=== PATIENT | male | born 1970 | race Caucasian/White ===

== ENCOUNTER → 2020-04-14 15:11 | Outpatient (CLI) | payer OTHER, SELFPAY ==
[2020-04-14 17:32] LABS: COVID19 -Nasal RAPID Negative (Negative)
== END ==
PROVIDERS: Visit Provider Physician Assistant
DX: Z11.59 Encounter for screening for other viral diseases (principal)
CPT/HCPCS: 87635

== ENCOUNTER → 2021-02-13 12:19 | Outpatient (CLI) | payer OTHER, SELFPAY ==
[2021-02-13 14:27] LABS: COVID19 -Nasal RAPID POSITIVE (Negative)
== END ==
PROVIDERS: Visit Provider Nurse Practitioner
DX: U07.1 COVID-19 (principal)
CPT/HCPCS: 87635

== ENCOUNTER 2022-07-29 16:24 | Emergency (ER) | payer OTHER, SELFPAY ==
[2022-07-29 16:40] VITALS: PULSE 62; RESP 18; TEMP 36.6; O2SAT 100; BMI 23.7
--- NOTE | 2022-07-29 16:52 | DI.RAD.S_ITS ---
PROCEDURE: XR CHEST 1V INDICATIONS: chest pain TECHNIQUE: One view of the chest was acquired. COMPARISON: None. FINDINGS: Surgical changes and devices: None. Lungs and pleura: Lungs are clear. No pleural effusions or pneumothorax. Mediastinum: Mediastinal contours appear normal. Heart size is normal. Bones and chest wall: No suspicious bony lesions. Overlying soft tissues appear unremarkable. IMPRESSION: No acute radiographic abnormality. Dictated by: Ap Agarwal M.D. on 07/29/2022 at 18:14 Approved by: Ap Agarwal M.D. on 07/29/2022 at 18:14
[2022-07-29 17:24] LABS: Add Manual Diff / Slide Review NO; Basophils Absolute Auto 0 /uL (0-100); Basophils Percent Auto 0.7 % (0-2); Eosinophils Absolute Auto 300 /uL (0-450); Eosinophils Percent Auto 4.7 % (2-4); Hemoglobin 14.9 g/dL (13.5-17.5); Lymphocytes Absolute Auto 2000 /uL (1100-4500); Lymphocytes Percent Auto 36.9 % (25-40); Mean Corpuscular HGB Conc 33.1 % (30-36); Mean Corpuscular Hemoglobin 30.4 PG (26-34); Mean Corpuscular Volume 91.8 fL (80-100); Monocytes Absolute Auto 600 /uL (0-900); Monocytes Percent Auto 10.2 % (3-14); Neutrophils Absolute Auto 2600 /uL (1500-7000); Neutrophils Percent Auto 47.5 % (50-75); Platelet Count 179 X10^3/uL (150-400); Red Cell Distribution Width 13.5 % (11.6-14.8); White Blood Cell Count 5.4 X10^3/uL (4.5-11.0)
[2022-07-29 17:27] LABS: Prothrombin Time 11.7 SECONDS (10.1-12.7)
[2022-07-29 17:30] LABS: PTT Partial Thromboplastin Tim 30 SECONDS (26-36)
[2022-07-29 17:38] LABS: Alanine Aminotransferase 22 IU/L (<50); Albumin 4.4 g/dL (3.5-5.0); Albumin Globulin Ratio 1.3 (1.0-2.8); Alkaline Phosphatase 61 U/L (38-126); Aspartate Aminotransferase 26 IU/L (17-59); BUN Creatinine Ratio 16.7 (6-22); Bilirubin Total 0.5 mg/dL (0.2-1.3); Blood Urea Nitrogen 18 mg/dL (9-20); Calcium 8.6 mg/dL (8.4-10.2); Carbon Dioxide 28 mmol/L (22-32); Chloride 100 mmol/L (98-107); Creatine Kinase 73 U/L (55-170); Estimated Glomerular Filt Rate > 60 mL/min (>60); Globulin 3.3 g/dL (1.7-4.1); Glucose 96 mg/dL (70-100); HEMOLYSIS < 15 (0-50); Lipase 106 U/L (23-300); Magnesium 1.9 mg/dL (1.6-2.3); Potassium 3.6 mmol/L (3.4-5.1); Sodium 138 mmol/L (137-145); Total Protein 7.7 g/dL (6.3-8.2)
[2022-07-29 17:49] LABS: Troponin I < 0.012 ng/mL (0.01-0.034)
--- NOTE | 2022-07-29 19:06 | ED.ARRPALP ---
HPI - Arrhythmia/Palpitations General Chief Complaint: Arrhythmia/Palpitations Stated Complaint: sent by [facility] - abnormal heart sounds Time Seen by Provider: 07/29/22 18:44 Source: patient Mode of arrival: Ambulatory Limitations: no limitations History of Present Illness HPI narrative: Patient is a 51-year-old otherwise healthy male who was [facility] the [facility] an abnormal heart rhythm. Patient states that he went to the clinic in order to get a routine evaluation for a job at work and during this evaluation he had an EKG performed and an evaluation and was found to potentially have atrial fibrillation. Patient has never been diagnosed with this in the past. He states that sometimes he occasionally feels like his heart is beating abnormally but it is not all the time. He is currently asymptomatic. He states that occasionally when he stands up he gets lightheaded but that resolves very quickly that has not happened recently. He is had no decrease in exercise tolerance. He denies chest pain or shortness of breath or headache. No nausea and vomiting. No lower extremity swelling. Related Data Home Medications Medication Instructions Recorded Confirmed CA PANTOTHENATE/FOLIC ACID/VIT 1 tab PO QDAY #0 tabs 02/27/13 (MULTIVITAMIN) Previous Rx's Medication Instructions Recorded rivaroxaban 20 mg tablet (Xarelto) 20 mg PO QPM #30 tabs 07/29/22 Allergies Allergy/AdvReac Type Severity Reaction Status Date / Time No Known Drug Allergies Allergy Verified 07/29/22 16:42 Review of Systems Review of Systems ROS Unobtainable: All systems reviewed & are unremarkable except as noted in HPI and below Patient History Social History Smoking Status: Unknown if ever smoked Smoking Status: Unknown if ever smoked Exam Initial Vital Signs Initial Vital Signs: Vital Signs Temperature 98 F 07/29/22 16:40 Pulse Rate 62 07/29/22 16:40 Respiratory Rate 18 07/29/22 16:40 Pulse Oximetry 100 07/29/22 16:40 Oxygen Delivery Method 07/29/22 16:40 Const General: cooperative, comfortable and No ill appearing HENMT Head: normal to inspection and normocephalic Resp Effort & Inspection: normal respiratory effort Auscultation: clear to auscultation bilaterally Cardio Rate: bradycardic Rhythm: abnormal rhythm GI Inspection: normal to inspection Skin General: no rashes or lesions noted Neuro General: patient alert, patient awake, patient oriented x3 and moves all extremities Extrem General: normal to inspection and capillary refill normal Psych Appearance: grossly normal and well kempt Course Orders Ordered: ED Orders 07/29/22 16:52 XR chest 1V Stat EKG-12 Lead Stat 07/29/22 16:57 Complete Blood Count AUTO DIFF Stat Comprehensive Metabolic Panel Stat Lipase Stat Magnesium Stat Partial Thromboplastin Time Stat Prothrombin Time INR Stat Troponin & CK Cardiac Panel Stat Discontinued Medications Aspirin (Aspirin 81 Mg Chew Tab) 324 mg PO NOW ONE Stop: 07/29/22 16:53 Last Admin: 07/29/22 18:43 Dose: Not Given Documented By: AIDAN Vital Signs Vital signs: Vital Signs - 8 hr 07/29/22 16:40 Temperature 98 F Pulse Rate 62 Respiratory Rate 18 Pulse Oximetry 100 Oxygen Delivery Method Room Air MDM - Arrhythmia/Palpitations Lab Data Attestation: I reviewed the patient's lab results. 07/29/22 16:57 07/29/22 16:57 Labs: Lab Results 07/29/22 07/29/22 07/29/22 Range/Units 16:57 16:57 16:57 WBC 5.4 (4.5-11.0) X10^3/uL RBC 4.90 (4.5-5.9) X10^6/uL Hgb 14.9 (13.5-17.5) g/dL Hct 45.0 (41-53) % MCV 91.8 (80-100) fL MCH 30.4 (26-34) PG MCHC 33.1 (30-36) % RDW 13.5 (11.6-14.8) % Plt Count 179 (150-400) X10^3/uL Neut % (Auto) 47.5 L (50-75) % Lymph % (Auto) 36.9 (25-40) % [place] % (Auto) 10.2 (3-14) % Eos % (Auto) 4.7 H (2-4) % Baso % (Auto) 0.7 (0-2) % Neut # (Auto) 2600 (0326-6040) /uL Lymph # (Auto) 2000 (9874-7098) /uL [place] # (Auto) 600 (0-900) /uL Eos # (Auto) 300 (0-450) /uL Baso # (Auto) 0 (0-100) /uL PT 11.7 (10.1-12.7) SECONDS INR 1.0 (0.9-1.3) APTT 30 (26-36) SECONDS Sodium 138 (137-145) mmol/L Potassium 3.6 (3.4-5.1) mmol/L Chloride 100 (98-107) mmol/L Carbon Dioxide 28 (22-32) mmol/L BUN 18 (9-20) mg/dL Creatinine 1.08 (0.66-1.25) mg/dL Estimated GFR > 60 (>60) mL/min BUN/Creatinine Ratio 16.7 (6-22) Glucose 96 (70-100) mg/dL Calcium 8.6 (8.4-10.2) mg/dL Magnesium 1.9 (1.6-2.3) mg/dL Total Bilirubin 0.5 (0.2-1.3) mg/dL AST 26 (17-59) IU/L ALT 22 (<50) IU/L Alkaline Phosphatase 61 (38-126) U/L Total Creatine Kinase 73 (55-170) U/L CK-MB (CK-2) TNP CK-MB (CK-2) Rel Index TNP Troponin I < 0.012 (0.01-0.034) ng/mL Total Protein 7.7 (6.3-8.2) g/dL Albumin 4.4 (3.5-5.0) g/dL Globulin 3.3 (1.7-4.1) g/dL Albumin/Globulin Ratio 1.3 (1.0-2.8) Lipase 106 (23-300) U/L Imaging Data Chest x-ray: Radiologist's Impresson: PROCEDURE:? XR CHEST 1V ? INDICATIONS:? chest pain ? TECHNIQUE:? One view of the chest was acquired.? ? COMPARISON:? None. ? FINDINGS:? ? Surgical changes and devices:? None.? ? Lungs and pleura:? Lungs are clear.? No pleural effusions or pneumothorax.? ? Mediastinum:? Mediastinal contours appear normal.? Heart size is normal.? ? Bones and chest wall:? No suspicious bony lesions.? Overlying soft tissues appear unremarkable.? ? IMPRESSION:? No acute radiographic abnormality.? ECG Data Attestation: I personally reviewed and interpreted this ECG as follows: Prior ECG tracings: available for review Interpretation: EKG performed at outside clinic shows atrial fibrillation with a rate in the 50s EKG performed here Atrial fibrillation Ventricular rate of 57 Normal axis Normal QRS Normal QTC No ST T wave changes MDM Narrative Medical decision making narrative: Patient is in rate controlled atrial fibrillation. Patient not a candidate for cardioversion as we do not know when he started to have the abnormal heart rhythm. Patient is asymptomatic currently. Electrolytes and chest x-ray are unremarkable. Troponin is negative. Plan will be is to start the patient on Xarelto. No indication to start on rate control medications as the patient is already bradycardic. We will have the patient contact his primary doctor and also Cardiology for a follow-up. He was given return precautions. He expressed understanding and agreement. Discharge Plan Departure Patient Disposition: Home Clinical Impression: Atrial fibrillation Instructions: DI for Atrial Fibrillation Activity Restrictions/Additional Instructions: A prescription for blood thinners was sent to [facility] per your request. Please start taking it as directed. It is important that you follow-up with a primary doctor and also a supervisor forming department. A name for supervisor forming department was provided below that you can contact. Return to the emergency department for new symptoms to include chest pain, lightheadedness, shortness of breath or feeling like your heart is beating fast for extended periods of time but not improving. Prescriptions: New Xarelto 20 mg tablet 20 mg PO QPM Qty: 30 2RF Rx Instructions: must administer with evening meal No Action CA PANTOTHENATE/FOLIC ACID/VIT (MULTIVITAMIN) 1 tab PO QDAY Qty: 0 Referrals: Isaías Cristina MD [Physician] - Stand Alone Forms: Patient Portal/API
== END 2022-07-29 19:19 | disposition home or self-care (01) ==
PROVIDERS: Emergency Medicine; Emergency Provider Emergency Medicine
DX: I48.91 Unspecified atrial fibrillation (principal); R07.9 Chest pain, unspecified
CPT/HCPCS: 36415; 71045; 80053; 82550; 83690; 83735; 84484; 85025; 85610; 85730; 93005; 99283; 99284

== ENCOUNTER → 2022-12-15 06:51 | Outpatient (CLI) | payer OTHER, SELFPAY ==
--- NOTE | 2022-12-15 | DI.ECHO.S_ITS ---
[facility] +---------+ : : [address] : : : : [id number] : : : : Phone: [phone] Echocardiogram Report + + :Name: FORTINO LARSEN Study Date: 12/15/2022 Height: 71 in : :[facility] ReadingLocation: Weight: 175 lb : : Gender: Male BSA: 2.0 m2 : :: 1970 Age: 52 yrs BP: 117/70 mmHg: :Reason For Study: PAROXYSMAL ATRIAL FIBRILLATION : :Ordering Physician: Rosanne JACOBformed By: Vilma Posada : :Referring: JOHN JACOB : + + Interpretation Summary The patient was in atrial fibrillation with heart rates between 47-58 bpm during the exam. The left ventricle is normal in size and wall thickness. The ejection fraction is estimated to be 45-50%. There is mild global hypokinesis of the left ventricle. There is a mild dyssynchronous contraction pattern, consistent with a conduction abnormality. The right ventricle is normal in size and function. There is mild mitral regurgitation. There is mild tricuspid regurgitation. Pulmonary artery pressures cannot be estimated because of the lack of a measurable TR jet velocity. Procedure: A two-dimensional transthoracic echocardiogram with color flow and Doppler was performed. The study quality was technically adequate. There is no prior echocardiogram noted for this patient. The patient was in atrial fibrillation with heart rates between 47-58 bpm during the exam. Left Ventricle: The left ventricle is normal in size and wall thickness. There is no thrombus. The ejection fraction is estimated to be 45-50%. There is mild global hypokinesis of the left ventricle. There is a mild dyssynchronous contraction pattern, consistent with a conduction abnormality. Diastolic function could not be accurately assessed due to atrial fibrillation. Right Ventricle: The right ventricle is normal in size and function. Atria: The left atrium is mildly dilated. The right atrium is mildly dilated. There is no Doppler evidence for an interatrial shunt. Mitral Valve: The mitral valve leaflets appear borderline thickened, but open well. There is mild mitral regurgitation. Aortic Valve: The aortic valve is trileaflet. The aortic valve opens well. There is no aortic valve stenosis. No aortic regurgitation is present. Tricuspid Valve: The tricuspid valve is normal. There is mild tricuspid regurgitation. Pulmonary artery pressures cannot be estimated because of the lack of a measurable TR jet velocity. Pulmonic Valve: The pulmonic valve leaflets are thin and pliable; valve motion is normal. There is no pulmonic valvular regurgitation. Great Vessels: The aortic root is normal size. The dimensions of the ascending aorta are normal. The inferior vena cava was not well visualized. Pericardium/ Pleura There is no pericardial effusion. There is no pleural effusion. MMode/2D Measurements & Calculations LVIDd: 5.3 cm LVOT diam: 2.3 cm LVIDs: 3.6 cm Ao root diam: 3.4 cm FS: 31.7 % asc Aorta Diam: 3.1 cm EPSS: 0.87 cm Ao Arch Diam (Prox Trans): 2.7 cm IVSd: 0.71 cm LVPWd: 1.00 cm LV palencia. diameter/BSA (cm/m^2): 2.6 LV sys. diameter/BSA (cm/m^2): 1.8 LA A2 area: 24.1 cm2 RA long axis: 5.3 cm LA A4 area: 23.0 cm2 RA area: 21.1 cm2 LA length (vol): 6.2 cm RA vol: 71.0 ml LA vol: 76.4 ml RA : 35.6 ml/m2 LA vol index: 38.3 ml/m2 RVD1 (basal): 3.8 cm RVD2 (mid): 3.3 cm TAPSE: 1.9 cm Doppler Measurements & Calculations Ao V2 max: 104.8 cm/sec LVOT Max [place]: 84.5 cm/sec Ao V2 mean: 72.3 cm/sec LV V1 max P.9 mmHg Ao max P.4 mmHg LV V1 VTI: 16.2 cm Ao mean P.3 mmHg ARYAN(I,D): 3.2 cm2 Ao V2 VTI: 20.7 cm ARYAN(V,D): 3.3 cm2 sev ratio: 0.78 ARYAN indexed to BSA (cm^2/m^2): 1.6 MV E max [place]: 77.4 cm/sec TR max [place]: 185.8 cm/sec MV A max [place]: 0.81 cm/sec TR max P.8 mmHg MV E/A: 95.0 PA V2 max: 77.1 cm/sec Med Peak E' [place]: 11.8 cm/sec PA V2 mean: 57.4 cm/sec E/E' med: 6.6 PA mean P.4 mmHg Lat Peak E' [place]: 14.0 cm/sec PA pr(Accel): 20.8 mmHg E/E' lat: 5.5 E/e' average: 6.1 MV dec time: 0.16 sec SV([facility]): 66.2 ml Reading Physician:09:45 AM
--- NOTE | 2022-12-15 | DI.NM.S_ITS ---
PROCEDURE: NM EXERCISE TREADMILL NON NUC COMPARISON: None. INDICATIONS: Paroxysmal atrial fibrillation FINDINGS: The patient exercised for 11 minutes and 6 seconds reaching 106% of maximum predicted heart rate. 12.8METS, NIKKI -12%. Atrial fibrillation with controlled ventricular rates present at rest. No ST changes and no angina during exercise or recovery. Appropriate BP response to exercise. IMPRESSION: Low risk, normal treadmill ECG only stress test from inducible ischemia standpoint. Atrial fibrillation present through the study. Above average exercise capacity (NIKKI -12%). Dictated by: Anabela Coelho MD on 12/16/2022 at 14:58 Approved by: Anabela Coelho MD on 12/16/2022 at 15:00
== END ==
PROVIDERS: PCP Nurse Practitioner Family; Referring Provider Internal Medicine Cardiovascular Disease; Visit Provider Internal Medicine Cardiovascular Disease
DX: I08.1 Rheumatic disorders of both mitral and tricuspid valves (principal); I48.0 Paroxysmal atrial fibrillation
CPT/HCPCS: 93017; 93306

== ENCOUNTER → 2023-06-22 15:18 | Outpatient (CLI) | payer OTHER, SELFPAY ==
[2023-06-22 15:33] LABS: Add Manual Diff / Slide Review NO; Basophils Absolute Auto 100 /uL (0-100); Basophils Percent Auto 0.8 % (0-2); Eosinophils Absolute Auto 100 /uL (0-450); Eosinophils Percent Auto 1.2 % (2-4); Hemoglobin 15.2 g/dL (13.5-17.5); Lymphocytes Absolute Auto 1800 /uL (1100-4500); Mean Corpuscular HGB Conc 33.8 % (30-36); Mean Corpuscular Volume 88.5 fL (80-100); Monocytes Absolute Auto 700 /uL (0-900); Monocytes Percent Auto 8.4 % (3-14); Neutrophils Absolute Auto 5900 /uL (1500-7000); Neutrophils Percent Auto 68.6 % (50-75); Platelet Count 273 X10^3/uL (150-400); Red Blood Cell Count 5.08 X10^6/uL (4.5-5.9); Red Cell Distribution Width 13.7 % (11.6-14.8); White Blood Cell Count 8.6 X10^3/uL (4.5-11.0)
[2023-06-22 17:05] LABS: Alanine Aminotransferase 27 IU/L (<50); Albumin 4.2 g/dL (3.5-5.0); Albumin Globulin Ratio 1.3 (1.0-2.8); Alkaline Phosphatase 46 U/L (38-126); Aspartate Aminotransferase 27 IU/L (17-59); Bilirubin Total 0.9 mg/dL (0.2-1.3); Blood Urea Nitrogen 23 mg/dL (9-20); Calcium 9.4 mg/dL (8.4-10.2); Carbon Dioxide 26 mmol/L (22-32); Chloride 99 mmol/L (98-107); Estimated Glomerular Filt Rate > 60 mL/min (>60); Globulin 3.3 g/dL (1.7-4.1); Glucose 105 mg/dL (70-100); HEMOLYSIS < 15 (0-50); Potassium 4.6 mmol/L (3.4-5.1); Sodium 137 mmol/L (137-145); Total Protein 7.5 g/dL (6.3-8.2)
== END ==
PROVIDERS: PCP Nurse Practitioner Family; Referring Provider Nurse Practitioner Family; Visit Provider Nurse Practitioner Family
DX: R35.0 Frequency of micturition (principal); R31.9 Hematuria, unspecified
CPT/HCPCS: 36415; 80053; 85025

== ENCOUNTER → 2023-07-08 17:07 | Outpatient (CLI) | payer OTHER, SELFPAY ==
[2023-07-08 18:04] LABS: Appearance Urine UA CLOUDY; Bilirubin Urine UA NEGATIVE (NEGATIVE); Color Urine UA YELLOW; Glucose Urine UA NEGATIVE (Negative); Ketones Urine UA NEGATIVE (NEGATIVE); Leukocyte Esterase Urine UA TRACE (NEGATIVE); Nitrite Urine UA POSITIVE (Negative); Occult Blood Urine UA 3+ (Negative); Protein Urine UA 3+ (Negative); Specific Gravity Urine UA >=1.030 (1.000-1.035)
[2023-07-08 18:21] LABS: Bacteria Urine Many (>30); RBC Urine 5-10/HPF (0-5/HPF); Squamous Epithelial Cell Urine None Seen (0-5/HPF); Urine Volume 10mL (spun); WBC Urine 5-10/HPF (0-5/HPF)
[2023-07-08 19:30] LABS: Urine N gonorrhoeae NOT DETECTED
[2023-07-08 19:42] LABS: Urine Chlamydia NOT DETECTED
== END ==
LOC: LAB 17:10
PROVIDERS: PCP Nurse Practitioner Family; Referring Provider Nurse Practitioner Family; Visit Provider Nurse Practitioner Family
DX: R30.0 Dysuria (principal)
CPT/HCPCS: 81001; 87077; 87086; 87186; 87491; 87591

== ENCOUNTER → 2023-07-29 12:53 | Outpatient (CLI) | payer OTHER, SELFPAY ==
[2023-07-29 14:30] LABS: Appearance Urine UA CLEAR; Bilirubin Urine UA NEGATIVE (NEGATIVE); Color Urine UA YELLOW; Glucose Urine UA NEGATIVE (Negative); Ketones Urine UA NEGATIVE (NEGATIVE); Leukocyte Esterase Urine UA NEGATIVE (NEGATIVE); Nitrite Urine UA NEGATIVE (Negative); Occult Blood Urine UA NEGATIVE (Negative); Protein Urine UA NEGATIVE (Negative); Specific Gravity Urine UA 1.025 (1.000-1.035); Urobilinogen Urine UA 0.2 E.U./dL (0.2); pH Urine UA 5.5 (4.5-8.0)
[2023-07-29 14:31] LABS: Bacteria Urine None Seen; Culture Indicated Urine Cult Not Indicated; RBC Urine None Seen (0-5/HPF); Squamous Epithelial Cell Urine None Seen (0-5/HPF); Urine Volume 10mL (spun); WBC Urine None Seen (0-5/HPF)
== END ==
PROVIDERS: PCP Nurse Practitioner Family; Referring Provider Nurse Practitioner Family; Visit Provider Nurse Practitioner Family
DX: N39.0 Urinary tract infection, site not specified (principal)
CPT/HCPCS: 81001; 87086

== ENCOUNTER → 2023-10-07 14:50 | Outpatient (CLI) | payer OTHER, SELFPAY ==
[2023-10-07 15:17] LABS: Appearance Urine UA SL CLOUDY; Bilirubin Urine UA NEGATIVE (NEGATIVE); Color Urine UA YELLOW; Glucose Urine UA NEGATIVE (Negative); Ketones Urine UA NEGATIVE (NEGATIVE); Leukocyte Esterase Urine UA TRACE (NEGATIVE); Nitrite Urine UA POSITIVE (Negative); Occult Blood Urine UA 3+ (Negative); Protein Urine UA 3+ (Negative); Specific Gravity Urine UA >=1.030 (1.000-1.035); Urobilinogen Urine UA 0.2 E.U./dL (0.2)
[2023-10-07 15:27] LABS: Bacteria Urine Moderate (10-30); Culture Indicated Urine Specimen Cultured; Mucus Urine 2+ (Negative); RBC Urine 30-100/HPF (0-5/HPF); Squamous Epithelial Cell Urine 0-1 /HPF (0-5/HPF); Urine Volume 10mL (spun); WBC Urine 30-100/HPF (0-5/HPF)
== END ==
PROVIDERS: PCP Nurse Practitioner Family; Referring Provider Nurse Practitioner Family; Visit Provider Nurse Practitioner Family
DX: R35.0 Frequency of micturition (principal)
CPT/HCPCS: 81001; 87077; 87086; 87186

== ENCOUNTER → 2023-11-24 17:30 | Outpatient (CLI) | payer OTHER, SELFPAY ==
[2023-11-24 19:09] LABS: Alanine Aminotransferase 18 IU/L (<50); Albumin 4.7 g/dL (3.5-5.0); Albumin Globulin Ratio 1.5 (1.0-2.8); Alkaline Phosphatase 55 U/L (38-126); Aspartate Aminotransferase 25 IU/L (17-59); BUN Creatinine Ratio 19.4 (6-22); Bilirubin Total 0.8 mg/dL (0.2-1.3); Blood Urea Nitrogen 21 mg/dL (9-20); Calcium 9.3 mg/dL (8.4-10.2); Carbon Dioxide 29 mmol/L (22-32); Chloride 102 mmol/L (98-107); Estimated Glomerular Filt Rate > 60 mL/min (>60); Globulin 3.2 g/dL (1.7-4.1); Glucose 113 mg/dL (70-100); HEMOLYSIS < 15 (0-50); Potassium 3.8 mmol/L (3.4-5.1); Sodium 137 mmol/L (137-145); Total Protein 7.9 g/dL (6.3-8.2)
[2023-11-29 07:36] LABS: PSA Free % 9.8 % (.); PSA, Total 8.6 ng/mL (0.0-4.0)
== END ==
PROVIDERS: PCP Nurse Practitioner Family; Referring Provider Nurse Practitioner Family; Visit Provider Nurse Practitioner Family
DX: N40.0 Benign prostatic hyperplasia without lower urinary tract symptoms (principal); N40.1 Benign prostatic hyperplasia with lower urinary tract symptoms
CPT/HCPCS: 36415; 80053; 84153; 84154

== ENCOUNTER → 2024-01-03 13:13 | Outpatient (CLI) | payer OTHER, SELFPAY ==
--- NOTE | 2024-01-03 13:14 | DI.CT.S_ITS ---
PROCEDURE: CT KIDNEY URETER BLADDER (KUB) INDICATIONS: Bladder wall was interpreted as being thickened TECHNIQUE: Axial sections were acquired from the lung bases to the pubic symphysis. Coronal and sagittal reformats were performed. For radiation dose reduction, the following was used: automated exposure control, adjustment of mA and/or kV according to patient size. COMPARISON: None. FINDINGS: Image quality: Diagnostic. Evaluation of the visceral organs is limited due to the lack of intravenous contrast. Lower Chest: No significant findings. URINARY: Right Kidney: No stones or hydronephrosis. Right Ureter: No hydroureter. Left Kidney: No stones or hydronephrosis. Left Ureter: No hydroureter. Bladder: Circumferential bladder wall thickening, accounting for under distention. No stones. ABDOMEN: Liver: No contour-deforming solid mass. Gallbladder: No radiopaque gallstones or wall thickening. Biliary ducts: No biliary dilation. Pancreas: No ductal dilation. Spleen: Size is within normal limits. Adrenal Glands: No adrenal nodules. Stomach and Bowel: No hiatal hernia. Stomach appears grossly normal. Small and large bowel is normal in caliber, without obstruction. Peritoneum: No abnormal intraperitoneal fluid. No free air. Ventral Wall: No hernia. Abdominal Nodes: No enlarged retroperitoneal or mesenteric lymph nodes. Vessels: Aorta and inferior vena cava are normal in size. PELVIS: Pelvic Organs: Normal prostate size with dystrophic calcifications. Pelvic Nodes: Unremarkable. Miscellaneous: No inguinal hernias are seen. Bones: No acute fractures. No aggressive appearing lytic or blastic osseous lesions. IMPRESSION: Evaluation of the visceral organs is limited due to the lack of intravenous contrast. 1. No obstructing stones or hydronephrosis. No bladder stones. 2. Circumferential bladder wall thickening, accounting for under distention. No bladder stones or prostatomegaly. Findings may rep flexed sequela of cystitis of infectious or inflammatory in etiology. If clinically warranted, a CT IVP study can be performed for further evaluation. Dictated by: Vandana Solis M.D. on 01/04/2024 at 13:07 Approved by: Vandana Solis M.D. on 01/04/2024 at 13:34
== END ==
LOC: CT 13:13
PROVIDERS: PCP Nurse Practitioner Family; Referring Provider Specialist; Visit Provider Specialist
DX: N30.90 Cystitis, unspecified without hematuria (principal); N32.89 Other specified disorders of bladder; N40.1 Benign prostatic hyperplasia with lower urinary tract symptoms; N13.8 Other obstructive and reflux uropathy
CPT/HCPCS: 74176

== ENCOUNTER → 2024-02-27 12:30 | Outpatient (CLI) | payer OTHER, SELFPAY | PROVIDERS: PCP Nurse Practitioner Family; Referring Provider Nurse Practitioner Family; Visit Provider Nurse Practitioner Family | DX: R19.7 Diarrhea, unspecified (principal) | CPT/HCPCS: 87329 ==

== ENCOUNTER 2024-05-05 20:27 | Emergency (ER) | payer OTHER, SELFPAY ==
[2024-05-05 20:35] VITALS: BP 136/79; PULSE 94; RESP 16; TEMP 36.8; O2SAT 100; BMI 23.7
--- NOTE | 2024-05-05 20:41 | PC.NURSE ---
Started educating patient on chest pain work up process, patient states he does not want to stay for that, that he left his at the play he was at and can't leave her there and stay here for 3 or 4 hours. Asks I can't just see a doctor real quick and ask some questions. Educated patient again on work up process including IV, labs, EKG, and seeing provider. Patient again endorses that he doesn't want to stay for it, educated patient on risks given hx of cardiac ablation and symptoms, patient again states intent to leave. Educated patient to return if symptoms worsen.
== END 2024-05-05 20:44 | disposition left against medical advice (07) ==
PROVIDERS: Emergency Provider Emergency Medicine; PCP Nurse Practitioner Family
DX: R07.9 Chest pain, unspecified (principal)
CPT/HCPCS: 99281

== ENCOUNTER 2024-05-06 12:17 | Emergency (ER) | payer OTHER, SELFPAY ==
[2024-05-06] VITALS (15 sets, daily range): BP systolic 124–143; BP diastolic 66–88; PULSE 82–107; RESP 10–20; TEMP 36.6; O2SAT 96–100; BMI 23.7
--- NOTE | 2024-05-06 12:32 | DI.RAD.S_ITS ---
PROCEDURE: XR CHEST 1V INDICATIONS: chest pain TECHNIQUE: One view of the chest was acquired. COMPARISON: [facility], CR, XR CHEST 1V, 07/29/2022, 17:18. FINDINGS: Surgical changes and devices: None. Lungs and pleura: On this semiupright portable chest examination, no large pneumothorax or large pleural effusions are seen. No focal infiltrates are seen. Mediastinum: Mediastinal contours appear normal. Heart size is normal. Bones and chest wall: No suspicious bony lesions. Age-appropriate bony degenerative changes are seen. Overlying soft tissues appear unremarkable. IMPRESSION: Portable chest within normal limits for age. Dictated by: Quintin Plaza M.D. on 05/06/2024 at 11:47 Approved by: Quintin Plaza M.D. on 05/06/2024 at 11:48
[2024-05-06 12:38] LABS: Add Manual Diff / Slide Review NO; Basophils Absolute Auto 100 /uL (0-100); Basophils Percent Auto 0.6 % (0-2); Eosinophils Absolute Auto 100 /uL (0-450); Hematocrit 45.2 % (41-53); Hemoglobin 15.2 g/dL (13.5-17.5); Lymphocytes Absolute Auto 2100 /uL (1100-4500); Lymphocytes Percent Auto 24.7 % (25-40); Mean Corpuscular HGB Conc 33.6 % (30-36); Mean Corpuscular Hemoglobin 30.5 PG (26-34); Mean Corpuscular Volume 90.8 fL (80-100); Monocytes Absolute Auto 1300 /uL (0-900); Monocytes Percent Auto 14.6 % (3-14); Neutrophils Absolute Auto 5100 /uL (1500-7000); Neutrophils Percent Auto 59.1 % (50-75); Platelet Count 170 X10^3/uL (150-400); Red Blood Cell Count 4.98 X10^6/uL (4.5-5.9); Red Cell Distribution Width 13.3 % (11.6-14.8); White Blood Cell Count 8.7 X10^3/uL (4.5-11.0)
[2024-05-06 12:41] LABS: INR 1.1 (0.9-1.3); Prothrombin Time 12.6 SECONDS (9.4-12.5)
[2024-05-06 12:44] LABS: PTT Partial Thromboplastin Tim 33 SECONDS (25.1-36.5)
[2024-05-06 12:46] LABS: Alanine Aminotransferase 16 IU/L (<50); Albumin 4.4 g/dL (3.5-5.0); Albumin Globulin Ratio 1.3 (1.0-2.8); Alkaline Phosphatase 46 U/L (38-126); Aspartate Aminotransferase 23 IU/L (17-59); BUN Creatinine Ratio 11.7 (6-22); Bilirubin Total 1.9 mg/dL (0.2-1.3); Blood Urea Nitrogen 14 mg/dL (9-20); Calcium 9.5 mg/dL (8.4-10.2); Carbon Dioxide 28 mmol/L (22-32); Chloride 101 mmol/L (98-107); Creatine Kinase 78 U/L (55-170); Estimated Glomerular Filt Rate > 60 mL/min (>60); Globulin 3.3 g/dL (1.7-4.1); Glucose 112 mg/dL (70-100); HEMOLYSIS < 15 (0-50); Lipase 60 U/L (23-300); Magnesium 1.8 mg/dL (1.6-2.3); Potassium 3.8 mmol/L (3.4-5.1); Sodium 134 mmol/L (137-145); Total Protein 7.7 g/dL (6.3-8.2)
--- NOTE | 2024-05-06 12:49 | EKG_ITS ---
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
--- NOTE | 2024-05-06 12:50 | ED_ITS ---
HPI - Chest Pain General Chief Complaint: Chest Pain Stated Complaint: returning, cardia px, chest pressure and px Time Seen by Provider: 05/06/24 12:50 Source: patient, RN notes reviewed and old records reviewed Mode of arrival: Family Vehicle Limitations: no limitations History of Present Illness HPI narrative: 53-year-old male history of atrial fibrillation with prior cardiac ablation in September of 2023 no longer on any cardiac medications tamsulosin is only home medication. Describes central chest pressure starting last night after eating dinner states he has been skiing all day patient. Patient states had substernal chest pain stated radiate to his shoulder a little bit earlier today/last night but currently just substernal has never totally resolved his wax and wane a little bit started after skiing yesterday and eating a large meal. Patient states has continued to persist. Denies any diaphoresis. No fevers no cold cough or congestion symptoms, states it does feel it uncomfortable to take a big breath but not painful. No nausea or vomiting. No other GI or urinary symptoms no swelling of extremities. Patient states no known drug allergies. Saw [facility] for his cardiac cardiac care in his ablation was there as well. Related Data Home Medications Medication Instructions Recorded Confirmed CA PANTOTHENATE/FOLIC ACID/VIT 1 tab PO QDAY #0 tabs 02/27/13 01/20/24 (MULTIVITAMIN) losartan 25 mg tablet 25 mg PO DAILY 11/30/23 01/20/24 Previous Rx's Medication Instructions Recorded rivaroxaban 20 mg tablet (Xarelto) 20 mg PO QPM #30 tabs 07/29/22 tamsulosin 0.4 mg capsule 0.4 mg PO .B.i.d. #180 caps 11/30/23 Allergies Allergy/AdvReac Type Severity Reaction Status Date / Time No Known Drug Allergies Allergy Verified 05/05/24 20:35 Review of Systems Review of Systems ROS Unobtainable: All systems reviewed & are unremarkable except as noted in HPI and below Patient History Medical History BPH w urinary obs/LUTS History of UTI Elevated PSA UTI (urinary tract infection) BPH with obstruction/lower urinary tract symptoms Surgical History Status post ablation of atrial fibrillation Social History marital status: number of children: 2 occupational status: employed Smoking Status: Former smoker Smokeless tobacco user: chewing tobacco alcohol intake: former caffeine: No Type(s) of exercise: bicycling, weight lifting and running Smoking Status: Former smoker Substance Use Type: does not use Exam Narrative Exam Narrative: GENERAL: Alert and oriented x three, mild distress HEENT: Head normocephalic, atraumatic, EOMI, pupils reactive, face symmetric, moist mucous membranes NECK: Supple, full range of motion CARDIOVASCULAR: Regular rate and rhythm without murmurs, rubs or gallops. No JVD. No edema bilateral lower extremities RESPIRATORY: Breath sounds equal bilaterally, no wheezes rales or rhonchi. ABDOMEN: Soft, nontender. Normoactive bowel sounds all 4 quadrants. No guarding or rebound, rigidity, no mass : No CVA tenderness EXTREMITIES: Normal range of motion, no clubbing or edema. Neurovascularly intact NEUROLOGICAL: Cranial nerves II through XII grossly intact. Moving all extremities SKIN: Warm, dry, no petechiae, no rashes or lesions. Initial Vital Signs Initial Vital Signs: Vital Signs Pulse Rate 87 05/06/24 12:25 Respiratory Rate 19 05/06/24 12:25 Blood Pressure 133/88 05/06/24 12:25 Pulse Oximetry 97 05/06/24 12:25 Course Orders Ordered: ED Orders 05/06/24 12:28 Complete Blood Count AUTO DIFF Stat Comprehensive Metabolic Panel Stat Lipase Stat Magnesium Stat NT-proBNP (BNP-Adult 18+) Stat PTT Partial Thromboplastin Homar Stat Prothrombin Time INR Stat Troponin & CK Cardiac Panel Stat 05/06/24 12:32 XR chest 1V Stat EKG-12 Lead Stat 05/06/24 13:00 PTT Partial Thromboplastin Homar Q6H 05/06/24 19:00 PTT Partial Thromboplastin Homar Q6H 05/07/24 01:00 PTT Partial Thromboplastin Homar Q6H 05/07/24 05:00 Hemoglobin and Hematocrit DAILY Platelet Count DAILY 05/07/24 07:00 PTT Partial Thromboplastin Homar Q6H 05/08/24 05:00 Hemoglobin and Hematocrit DAILY Platelet Count DAILY Heparin Sodium/Dextrose (Heparin Drip) 25,000 unit in 500 mls @ 18.507 mls/hr IV CONT DAVID; Protocol Last Admin: 05/06/24 13:05 Dose: 12 units/kg/hr, 18.507 mls/hr Documented By: MEGHNA Co-signed By: MITZY Nitroglycerin (Nitroglycerin 0.4 Mg Sl Tab) 0.4 mg SL [id number] PRN PRN Reason: Chest Pain Last Admin: 05/06/24 13:10 Dose: 0.4 mg Documented By: Admin: 05/06/24 13:04 Dose: 0.4 mg Documented By: MEGHNA Discontinued Medications Aspirin (Aspirin 81 Mg Chew Tab) 324 mg PO NOW ONE Stop: 05/06/24 12:53 Last Admin: 05/06/24 12:55 Dose: 324 mg Documented By: MEGHNA Aspirin (Aspirin 81 Mg Chew Tab) 324 mg PO NOW ONE Stop: 05/06/24 12:57 Last Admin: 05/06/24 13:02 Dose: 324 mg Documented By: MEGHNA Heparin Sodium (Porcine) (Heparin 5,000 Unit/Ml Vial) 4,500 unit 60 unit/kg (4500 unit) IV NOW ONE Stop: 05/06/24 12:57 Last Admin: 05/06/24 13:02 Dose: 4,500 unit Documented By: MEGHNA Vital Signs Vital signs: Vital Signs - 8 hr 05/06/24 12:25 05/06/24 12:25 05/06/24 12:28 Temperature 97.8 F Pulse Rate 87 87 Respiratory Rate 19 16 Blood Pressure 133/88 133/88 Pulse Oximetry 97 99 Oxygen Delivery Method Room Air 05/06/24 12:32 05/06/24 12:35 05/06/24 12:40 Temperature Pulse Rate 92 H 87 86 Respiratory Rate 13 16 Blood Pressure Pulse Oximetry 96 99 100 Oxygen Delivery Method 05/06/24 12:45 05/06/24 12:50 05/06/24 12:55 Temperature Pulse Rate 84 82 89 Respiratory Rate 20 10 L 16 Blood Pressure Pulse Oximetry 100 100 Oxygen Delivery Method 05/06/24 13:03 05/06/24 13:04 05/06/24 13:04 Temperature Pulse Rate 107 H 102 H 101 H Respiratory Rate 20 19 Blood Pressure 133/88 Pulse Oximetry Oxygen Delivery Method 05/06/24 13:04 05/06/24 13:05 12/01/24 13:10 Temperature Pulse Rate 99 H 99 H Respiratory Rate 18 Blood Pressure 143/83 H 139/80 Pulse Oximetry 97 Oxygen Delivery Method MDM - Chest Pain Lab Data 05/06/24 12:28 05/06/24 12:28 Labs: Lab Results 05/06/24 Range/Units 12:28 WBC 8.7 (4.5-11.0) X10^3/uL RBC 4.98 (4.5-5.9) X10^6/uL Hgb 15.2 (13.5-17.5) g/dL Hct 45.2 (41-53) % MCV 90.8 (80-100) fL MCH 30.5 (26-34) PG MCHC 33.6 (30-36) % RDW 13.3 (11.6-14.8) % Plt Count 170 (150-400) X10^3/uL Neut % (Auto) 59.1 (50-75) % Lymph % (Auto) 24.7 L (25-40) % [place] % (Auto) 14.6 H (3-14) % Eos % (Auto) 1.0 L (2-4) % Baso % (Auto) 0.6 (0-2) % Neut # (Auto) 5100 (2587-0400) /uL Lymph # (Auto) 2100 (7472-2427) /uL [place] # (Auto) 1300 H (0-900) /uL Eos # (Auto) 100 (0-450) /uL Baso # (Auto) 100 (0-100) /uL PT 12.6 H (9.4-12.5) SECONDS INR 1.1 (0.9-1.3) APTT 33 (25.1-36.5) SECONDS Sodium 134 L (137-145) mmol/L Potassium 3.8 (3.4-5.1) mmol/L Chloride 101 (98-107) mmol/L Carbon Dioxide 28 (22-32) mmol/L BUN 14 (9-20) mg/dL Creatinine 1.20 (0.66-1.25) mg/dL Estimated GFR > 60 (>60) mL/min BUN/Creatinine Ratio 11.7 (6-22) Glucose 112 H (70-100) mg/dL Calcium 9.5 (8.4-10.2) mg/dL Magnesium 1.8 (1.6-2.3) mg/dL Total Bilirubin 1.9 H (0.2-1.3) mg/dL AST 23 (17-59) IU/L ALT 16 (<50) IU/L Alkaline Phosphatase 46 (38-126) U/L Total Creatine Kinase 78 (55-170) U/L Troponin I < 0.012 (0.01-0.034) ng/mL NT-Pro-B Natriuret Pep 210 H (<125) pg/mL Total Protein 7.7 (6.3-8.2) g/dL Albumin 4.4 (3.5-5.0) g/dL Globulin 3.3 (1.7-4.1) g/dL Albumin/Globulin Ratio 1.3 (1.0-2.8) Lipase 60 (23-300) U/L Urine Dip Bedside Urine Glucose Negative Bedside Urine Bilirubin - Negative Bedside Urine Ketone - Negative Urine Specific [place] 1.010 Bedside Urine Occult Blood - Negative Bedside Urine pH 6.0 Bedside Urine Protein - Negative Bedside Urine Urobilinogen - Negative Bedside Urine Nitrite - Negative Bedside Urine Leukocytes - Negative Esterase Imaging Data Chest x-ray: Radiologist's Impression: Armando Grove??53??M??1970 ? Allergy/Adv: No Known Drug Allergies Close Chest X-Ray (Signed) Quintin Plaza - 05/06/24 Abdomen/Pelvis CT (Signed) Vandana Solis - 01/03/24 Echocardiogram Ultrasound (Signed) Isaías Crsitina - 12/15/22 Outside DI 10/18/22 Chest X-Ray (Signed) Ap Agarwal - 07/29/22 Launch?Image [address] [address] XRay Report Signed Patient: Armando Grove MR#: [id number] : 1970 Acct:[id number] Age/Sex: 53 / M Date of Service: 05/06/24 Loc: ED Accession Number: [id number] Procedure: XR chest 1V Ordering Provider: Socorro Rios D.O. PROCEDURE: XR CHEST 1V INDICATIONS: chest pain TECHNIQUE: One view of the chest was acquired. COMPARISON: [facility], , XR CHEST 1V, 07/29/2022, 17:18. FINDINGS: Surgical changes and devices: None. Lungs and pleura: On this semiupright portable chest examination, no large pneumothorax or large pleural effusions are seen. No focal infiltrates are seen. Mediastinum: Mediastinal contours appear normal. Heart size is normal. Bones and chest wall: No suspicious bony lesions. Age-appropriate bony degenerative changes are seen. Overlying soft tissues appear unremarkable. IMPRESSION: Portable chest within normal limits for age. Dictated by: Quintin Plaza M.D. on 05/06/2024 at 11:47 Approved by: Quintin Plaza M.D. on 05/06/2024 at 11:48 ECG Data Attestation: I personally reviewed and interpreted this ECG as follows: Prior ECG tracings: not available for review Interpretation: Sinus rhythm rate 82 [place] 174 QRS of [address] elevation 3 and AVF not appreciated in 2 elevation in lateral leads 1-2 mm V2 through V 5 and slightly in V6. Patient does have inverted T-waves in 1 and aVL no other depression. [place] 146 QRS of 94 QTC of 436 elevated in not appreciate as well in 3 and AVF, lateral leads 2 point elevation but not as significant as prior. This is after patient received nitro sublingual. [facility] Narrative Medical decision making narrative: 53-year-old male presents with complaint of chest pain started yesterday patient's EKG shows ST elevation diffusely throughout concerns for ST elevated [place] although patient is greater than 12 hours from original onset. EKG was sent to [facility] spoke with Dr. Murphy ED physician EKG shows STEMI but is little bit more diffuse although there are T-waves inverted. Chest x-ray shows no acute Labs CBC and chemistries are normal except for sodium 134 glucose of 112 lipase is negative tropes less than 0.012 with a BNP of 210, bilirubin is elevated. EKG shows ST elevation 3 and AVF as well as lateral leads to use 1 and aVL not totally typical pattern. Repeat EKG shows improvement. Patient received aspirin, nitro sublingual. Heparin gtt. Spoke with Dr. Murphy, ED physician at [facility]. Concern for STEMI although somewhat atypical presentation an EKG was reviewed at they state less likely STEMI but can go ahead and send at this time. 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 Critical Care Time Critical Care Time Critical Care Time: Yes Total Critical Care Time: 20 Attestation: The high probability of a clinically significant, sudden or life threatening deterioration of the cardiac system(s) required my full and direct attention, intervention and personal management. The aggregate critical care time was [--] minutes. This time is in addition to time spent performing reported procedures but includes the following: [x] Data Review and interpretation [x] Patient assessment and monitoring of vital signs [x] Documentation [x] Medication orders and management Discharge Plan [facility]: ST elevation (STEMI) myocardial infarction Prescriptions: No Action CA PANTOTHENATE/FOLIC ACID/VIT (MULTIVITAMIN) 1 tab PO QDAY Qty: 0 Xarelto 20 mg tablet 20 mg PO QPM Qty: 30 2RF Rx Instructions: must administer with evening meal losartan 25 mg tablet 25 mg PO DAILY tamsulosin 0.4 mg capsule 0.4 mg PO .B.i.d. Qty: 180 3RF Referrals: Pita Guerrero ARNP, RN [Primary Care Provider] -
[2024-05-06] MEDS: ASPIRIN 81 MG CHEW TAB 324 MG PO ×2 (12:55→13:02)
[2024-05-06 12:57] LABS: NT-proBNP (BNP-Adult 18+) 210 pg/mL (<125); Troponin I < 0.012 ng/mL (0.01-0.034)
[2024-05-06] MEDS: HEPARIN 5,000 UNIT/ML VIAL 4500 UNIT IV (13:02)
[2024-05-06] MEDS: NITROGLYCERIN 0.4 MG SL TAB SL ×2 (13:04→13:10)
[2024-05-06] MEDS: HEPARIN DRIP 25,000 UNIT/500 ML IV.SOLN 18.507 UNIT IV (13:05)
--- NOTE | 2024-05-06 13:19 | EKG_ITS ---
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
--- NOTE | 2024-05-06 13:27 | PC.NURSE ---
Patient here in department for chest pain that started yesterday after a hard day of skiing, patient states that they drank several pepsi's and ate candy bars. This RN went into the room to get the EKG, at the time no [employer]ER's were available, result on EKG was STEMI, this RN went and notified provider of result. Aspirin and nitro were given and patient stated that pain significantly improved. Provider at bedside and ordered heparin gtt and heparin bolus. Patient given one more dose of nitro and patient notes that pain is practically gone. [facility] arrives at 1325 to take patient to [facility] ED. patient left at 1334
== END 2024-05-06 13:34 | disposition short-term general hospital (02) ==
PROVIDERS: Emergency Provider Emergency Medicine; PCP Nurse Practitioner Family
DX: I21.4 Non-ST elevation (NSTEMI) myocardial infarction (principal); R07.9 Chest pain, unspecified
CPT/HCPCS: 36415; 71045; 80053; 81003; 82550; 83690; 83735; 83880; 84484; 85025; 85610; 85730; 93005; 93010; 96365; 96375; 99284; 99285; J1644